=== PATIENT | female | born 2000 | race Caucasian/White ===

== ENCOUNTER 2018-01-08 16:57 | Inpatient (IN) ==
[2018-01-08] MEDS ORDERED: 0.9 % Sodium Chloride 1,000 ML ONE (19:45)
[2018-01-08] MEDS ORDERED: 0.9 % Sodium Chloride 1,000 ML IVC ONE (19:50)
[2018-01-08] MEDS ORDERED: Naloxone 0.4 MG/ML INJ IVP PRN (19:53)
[2018-01-08] MEDS ORDERED: Acetaminophen 325 MG TABLET PO PRN (19:53)
[2018-01-08] MEDS ORDERED: Ondansetron 4 MG/2 ML VIAL IVP PRN (19:53)
[2018-01-08] MEDS ORDERED: 0.9 % Sodium Chloride 1,000 ML IVC SCH (20:00)
[2018-01-08] MEDS ORDERED: Pantoprazole 40 MG VIAL IVP SCH (20:00)
[2018-01-08] MEDS ORDERED: Levofloxacin 750 MG/150 ML 750 MG/150 ML BAG IVPB SCH (20:00)
[2018-01-08] MEDS ORDERED: Vancomycin (wt based) 1,000 MG VIAL IVPB SCH (20:00)
[2018-01-08] MEDS ORDERED: Ringers Solution, Lactated 1,000 ML IVC SCH (20:00)
--- NOTE | 2018-01-08 20:05 | Internal Med History&Physical ---
Date of Encounter: 01/08/18 Time of Encounter: 19:35 Internal Medicine - H&P: HPI Chief complaint: short of breath, fever Admitted From: Hospital to Hospital Transfer Plans for Post Hospital Care: Home History of present illness: Ms. Corona is a 17 year old female who was transferred here from [facility] inpatient service today for concerns of hypoxemia. She was admitted overnight last night with bilateral pneumonia. However, on rounds today, she was noted to be hypoxemic and requiring high flow oxygen. She was therefore transferred to [facility]. Upon my assessment of the patient when she arrived, patient appears to be critically ill and has evidence of septic shock. She has a high oxygen requirement to maintain oxygen saturations of 91%. She has poor perfusion and is somnolent. I reviewed her labs from [place] and her chest x-ray. I discussed with patient and her mother and grandmother the above history. Symptoms started abruptly yesterday morning with a sore throat, fever, cough, and shortness of breath. She saw her PCP who prescribed her antibiotics. By last evening, she went to the ER at [place] and was admitted to the hospital service there. Then, as the day progressed today, her symptoms worsened and her oxygen requirement increased. She was therefore transferred here. Based upon her lab review, x-ray review, and clinical impression, I am concerned that she may likely need intubation and mechanical ventilation and aggressive ICU measures as the evening progresses into morning. I am therefore moving her to the intensive care unit for ongoing critical care and support. I explained this to the patient, her mother, and grandmother, and they are all in agreement with the plan. History is obtained mostly from her mother as patient is quite ill-appearing, somnolent, and unable to provide much history. She is easily arousable and attentive and alert despite her somnolence. After reassessing patient in the ICU and repeating her chest x-ray, I contacted my ICU attending (Dr. Jewell) and discussed the case with him. Her x-ray this evening shows 5 lobe disease, and I am quite concerned she is developing ARDS. At the present time, she is more alert and breathing better, but she remains tachycardic. Blood pressure stabilized after fluid bolus and oxygenation is stable on 100% nonrebreather facemask. ABG was performed, and it suggests a compensated metabolic acidosis. However, she has a significant FiO2 requirement. In addition to her antibiotics, we started her on high-dose steroids and ordered respiratory infection panel and other serologies as requested by pulmonary. Dr. Jewell suggested possible transfer to a tertiary care Medical Center if there is high concern for ARDS development. I reassessed the patient, and I discussed with her parents at length the possible development and complications of ARDS. They agreed and requested transfer to a tertiary care Medical Center. I therefore contacted [facility] in [place] requesting transfer to the ICU. Past Med Surg Social Fam HX - Past Medical History Attestation: Yes The following information was validated with the patient. Source: patient, old records reviewed, obtained from family Medical history: GERD, migraine Psychiatric history: depression - Past Surgical History Surgical History: other (Childhood dental procedures) - Social History Smoking Status: Current every day smoker Packs per day: 1/2 Smokeless Tobacco Status: No Alcohol use: none Drug use: none Current living situation: Home, With Family Activity Level: Independent ambulation Recent Out of Country Travel Within the Last 8 Weeks: No - Family History Mother Adopted: [place]: Desi Corona Family Member Ethnicity: Non- Living Status: Still Living Hx Family Cardiac Disorders: Yes Hx Family Respiratory Disorders: No Hx Family Cancer: No Hx Family GI Disorders: Yes (gastroparesis) Hx Family Genitourinary Disorders: No Hx Family Endocrine Disorder: Yes (pancreatitis) Hx Family Musculoskeletal Disorders: Yes (Fibromyalgia) Hx Family Neuromuscular Disorders: No Hx Family Neurologic Disorders: No Hx Family HEENT Disorders: No Hx Family Autoimmune Disorders: No Hx Family Reproductive Disorders: No Hx Family Psychosocial Disorders: No Hx Family Medical Disorders: No Father Adopted: [place]: Jovani Corona Family Member Ethnicity: Non- Living Status: Still Living Hx Family Cardiac Disorders: Yes (Bradycardia) Hx Family Respiratory Disorders: No Hx Family Cancer: No Hx Family GI Disorders: No Hx Family Genitourinary Disorders: No Hx Family Endocrine Disorder: No Hx Family Musculoskeletal Disorders: No Hx Family Neuromuscular Disorders: No Hx Family Neurologic Disorders: No Hx Family HEENT Disorders: No Hx Family Autoimmune Disorders: No Hx Family Reproductive Disorders: No Hx Family Psychosocial Disorders: No Hx Family Medical Disorders: No Internal Medicine - H&P: Meds Omeprazole [PriLOSEC] 40 mg PO DAILY 12/22/16 [History] SUMAtriptan succinate [Imitrex] 25 mg PO AD PRN 12/22/16 [History] Azithromycin 6-Tab Pack 1 tab PO AD 01/07/18 [History] 3 Allergy/AdvReac Type Severity Reaction Status Date / Time Carbinoxamine [From [facility]] Allergy Hives Verified 10/13/17 10:17 cephalexin Allergy Swelling Verified 10/13/17 10:17 of Lip/Tongue/Throat chlorpheniramine Allergy Hives Verified 10/13/17 10:17 [From [facility] (phenylephrin-chlorphn)] phenylephrine Allergy Hives Verified 10/13/17 10:17 [From [facility] (phenylephrin-chlorphn)] pseudoephedrine [From [facility]] Allergy Hives Verified 10/13/17 10:17 Amoxicillin AdvReac Rash Verified 10/13/17 10:17 - Constitutional Constitutional: fatigue, fever(s), night sweats, no chills - EENT Eyes: no blurry vision, no change in vision Ears: no ear pain, no tinnitus Nose, mouth and throat: sore throat, no nasal congestion, no nasal discharge - Cardiovascular Cardiovascular ROS IM: dyspnea, dyspnea on exertion, lightheadedness, no chest pain, no syncope - Respiratory Respiratory: cough, dyspnea, chest congestion, pain with cough, no hemoptysis, no excessive phlegm production, no change in phlegm color - Gastrointestinal Gastrointestinal: nausea, no abdominal pain, no diarrhea, no vomiting - Genitourinary Genitourinary: no dysuria, no flank pain, no hematuria - Musculoskeletal Musculoskeletal ROS IM: no arthralgias, no back pain - Integumentary Integumentary IM: no rash, no jaundice - Neurological Neurological ROS: headache(s) (migraines infrequently), no dizziness, no focal weakness, no frequent falls - Psychiatric Psychiatric: no anxiety, no depression - Endocrine Endocrine IM: no polydipsia, no polyuria - Allergic/Immunologic Allergic/Immunologic: seasonal rhinorrhea, no wheezing, no GI upset with certain foods - Constitutional Vitals: Temp Pulse Resp BP Pulse Ox 98.0 F 117 19 79/49 97 01/08/18 19:35 01/08/18 19:35 01/08/18 19:35 01/08/18 19:35 01/08/18 19:35 General appearance: Present: cooperative, mild distress, pleasant, answers questions appropriately Exam: critically ill, somnolent initially, alert now and appropriate, initially had evidence of poor perfusion -- improved with fluid bolus, tachypneic, tachycardic , increased work of breathing - Head Head exam: Present: atraumatic, normal inspection - Eye Eye exam: Present: EOMI, normal appearance, PERRL. Absent: scleral icterus Pupils: Present: normal accommodation - ENT ENT exam: Present: mucous membranes dry, normal exam - Neck Neck exam general surgery: Present: full ROM, supple. Absent: lymphadenopathy, tenderness, nuchal rigidity, thyromegaly - Respiratory Respiratory exam: Present: rales (all lung bailon), respiratory distress (mild to moderate), tachypnea. Absent: chest wall tenderness, prolonged expiratory phase, wheezes - Cardiovascular Cardiovascular exam: Present: RRR, +S1, +S2, tachycardia. Absent: diastolic murmur, JVD, rubs, systolic murmur - GI/Abdominal GI/Abdominal exam: Present: normal bowel sounds, soft. Absent: guarding, mass, splenomegaly, tenderness - Extremities Exam Extremities exam: Present: full ROM, warm. Absent: calf tenderness, joint swelling, normal capillary refill (delayed at 4-5 seconds), mottling, pedal edema Additional comments: initially poor perfusion with weak and thready pulses; improved with fluid bolus - Back Exam Back exam: Present: normal inspection. Absent: CVA tenderness (L), CVA tenderness (R), tenderness - Neurological Exam Neurological exam: Present: alert, oriented X3, no focal deficits - Psychiatric Psychiatric exam: Present: normal affect, normal mood - Skin Skin exam: Present: dry, pallor, warm. Absent: mottled, rash Internal Med - H&P Results - Labs CBC & Chem 7: 01/08/18 20:12 01/08/18 20:12 - Diagnostic Studies Chest x-ray Status: image reviewed by me (5 lobe disease concerning for early development of ARDS) - Assessment and plan (1) Sepsis Current Visit: Yes Status: Acute Assessment and plan: 1. Fluid responsive thus far. 2. Blood cultures obtained at [place]. 3. Continue Vancomycin and Levaquin. 4. CVC placed in right groin for pressors if necessary. 5. Trend lactate. 75 minutes critical care time thus far, assessing, treating, and coordinating care. Qualifiers: Sepsis type: sepsis due to unspecified organism Qualified Code(s): A41.9 - Sepsis, unspecified organism (2) ARDS (adult respiratory distress syndrome) Current Visit: Yes Status: Suspected Assessment and plan: 1. Discussed with Dr. Coffman and family -- decision made to transfer. 2. I requested transfer to [facility] ICU -- accepted by [facility] Hospitalist team to the ICU (Dr. Givens). 3. [facility] requested [facility] transportation by helicopter -- I agree. 4. High dose Solumedrol started per discussion with Dr. Jewell. (3) Pneumonia of both lower lobes Current Visit: Yes Status: Suspected Assessment and plan: 1. Antibiotics and treatment as above. 2. Organism unknown but suspicious for pneumococcal pneumonia based upon history and abrupt onset. Qualifiers: Pneumonia type: due to Pneumococcus Qualified Code(s): J13 - Pneumonia due to Streptococcus pneumoniae (4) DVT prophylaxis Current Visit: Yes Status: Acute Assessment and plan: 1. Heparin SQ.
[2018-01-08 20:09] LABS: ABG Base Excess -6 mEq/L (-2 to 3); ABG HCO3 18 mEq/L (21-27); ABG Oxygen Saturation 89 % (95-98); ABG PCO2 30 mmHg (35-45); ABG PH 7.39 pH Units (7.32-7.45); ABG PO2 56 mmHg (85-104); ABG TCO2 19 mEq/L (20-26)
[2018-01-08 20:25] LABS: Lymphocytes % 2.7 %
[2018-01-08 20:26] LABS: Basophils % 0.1 %; Eosinophils # 0.3 K/mcL (0.0-0.6); Hemoglobin 12.1 g/dL (11.5-15.4); Immature Granulocytes % 2.2 % (0-4); Lymphocytes # 0.9 K/mcL (0.6-4.6); Mean Corpuscular HGB Conc 33.6 g/dL (31.6-35.5); Mean Corpuscular Hemoglobin 30.9 pg (28.0-33.3); Mean Corpuscular Volume 91.8 fL (83.0-100.0); Mean Platelet Volume 8.8 fL (9.4-12.4); Monocytes # 1.6 K/mcL (0.0-1.3); Monocytes % 4.8 %; Platelet Count 441 K/mcL (140-400); Red Blood Count 3.92 M/mcL (3.82-4.97); Red Cell Distribution Width 13.1 % (11.5-14.5); Segmented Neutrophils % 89.2 %
[2018-01-08 20:27] LABS: Neutrophils # 30.2 K/mcL (1.6-8.9)
[2018-01-08] MEDS: Ipratropium/Albuterol Neb 3 ML IH SCH ×2 (20:29→20:38)
[2018-01-08 20:31] LABS: INR 1.5; Prothrombin Time 16.9 Seconds (9.4-12.1)
[2018-01-08 20:45] LABS: Alanine Aminotransferase 5 Units/L (7-52); Albumin/Globulin Ratio 1.4 (1.1-2.2); Alkaline Phosphatase 37 Units/L (34-104); Aspartate Amino Transferase 8 Units/L (13-39); BUN/Creatinine Ratio 7 (6-26); Bilirubin,Total 0.3 mg/dL (0.3-1.0); Blood Urea Nitrogen 5 mg/dL (6-20); Calcium 7.9 mg/dL (8.6-10.3); Carbon Dioxide 23 mEq/L (23-29); Chloride 109 mEq/L (98-107); Globulin 2.2 g/dL (2.4-3.5); Glucose 119 mg/dL (70-105); Magnesium 1.6 mg/dL (1.6-2.6); Osmolality,Calculated 276 (280-300); Phosphorous 2.6 mg/dL (2.7-4.5); Potassium 4.6 mEq/L (3.5-5.1); Sodium 134 mEq/L (136-145); Total Protein 5.2 g/dL (6.4-8.9); eGFR For Non-African Americans > 60
[2018-01-08 21:08] LABS: Platelet Estimate Increased (Normal)
[2018-01-08 21:37] LABS: Bilirubin,Urine Negative (Negative); Blood,Urine Small (Negative); Clarity,Urine Clear (Clear); Color,Urine Yellow (Yellow); Glucose,Urine (UA) Normal (Normal); Ketones,Urine Negative (Negative); Leukocyte Esterase,Urine Negative (Negative); Nitrite,Urine Negative (Negative); Protein,Urine Negative (Neg-Trace); Specific Gravity,Urine 1.012 (1.010-1.025); Urobilinogen,Urine Normal (Normal)
[2018-01-08 21:39] LABS: Bacteria,Urine None Seen per hpf (None-Few); Hyaline Casts,Urine None Seen per lpf (None-Few); Squamous Epithelial Cell,Urine Many per lpf (None-Few); WBC,Urine 0-3 per hpf (0-3)
[2018-01-08] MEDS ORDERED: *HR* Promethazine 25 MG/ML VIAL ONE (21:39)
[2018-01-08] MEDS ORDERED: *HR* Promethazine 25 MG/ML VIAL IVP ONE (21:41)
[2018-01-08] MEDS ORDERED: methylPREDNISolone 125 MG/2 ML VIAL IVP SCH (21:45)
[2018-01-08] MEDS ORDERED: *HR* Heparin 5,000 UNIT/ML VIAL SQ SCH (22:00)
[2018-01-08 22:11] VITALS: BP 110/70
--- NOTE | 2018-01-08 22:47 | Procedure Note ---
<Raad Armijo - Last Filed: 01/08/18 22:39> Date of procedure: 01/08/18 Pre-op diagnosis: Severe sepsis Post-op diagnosis: same Procedure: A time-out was completed verifying correct patient, procedure, site, positioning , and special equipment. The patient was placed in a dependent position appropriate for central line placement based on the vein to be cannulated. The patients right groin was prepped and draped in sterile fashion. 1% Lidocaine was used to anesthetize the surrounding skin area. A 20 cm triple lumen Cordis catheter was introduced into the the common femoral vein using the Seldinger technique and under ultrasound guidance. The catheter was threaded smoothly over the guide wire and appropriate blood return was obtained. Each lumen of the catheter was evacuated of air and flushed with sterile saline. The catheter was then sutured in place to the skin and a sterile dressing applied. Perfusion to the extremity distal to the point of catheter insertion was checked and found to be adequate. Attending, Dr. Sanchez was present for the entire procedure. Estimated Blood Loss: 1cc, The patient tolerated the procedure well and there were no complications. Surgeon: Raad Armijo Was there an assistant engineer present: Yes Director [employer]: Atul Sanchez Estimated blood loss (cc): 1 IV fluids (cc): 2,000 Specimen: none Pathology: none sent Condition: critical Disposition: ICU (Life flight to [facility]) <Atul Sanchez - Last Filed: 01/08/18 23:03> Procedure: I was present and supervised entire procedure. Patient tolerated procedure well.
[2018-01-08 23:22] LABS: Adenovirus Not Detected (Not Detect); Bordetella Pertussis Not Detected (Not Detect); Chlamydophila pneumoniae Not Detected (Not Detect); Coronavirus 229E Not Detected (Not Detect); Coronavirus HKU1 Not Detected (Not Detect); Coronavirus NL63 Not Detected (Not Detect); Coronavirus OC43 Not Detected (Not Detect); Human Metapneumovirus Not Detected (Not Detect); Human Rhinovirus/Enterovirus Not Detected (Not Detect); Influenza A Subtype 2009 H1 Not Detected (Not Detect); Influenza A Untypeable Not Detected (Not Detect); Influenza B Not Detected (Not Detect); Mycoplasma pneumoniae Not Detected (Not Detect); Parainfluenza Virus 1 Not Detected (Not Detect); Parainfluenza Virus 2 Not Detected (Not Detect); Parainfluenza Virus 3 Not Detected (Not Detect); Parainfluenza Virus 4 Not Detected (Not Detect); Respiratory Syncytial Virus Not Detected (Not Detect)
[2018-01-08] MEDS ORDERED: Aminoglycoside Consult 1 EACH MC ONE (23:44)
--- NOTE | 2018-01-08 23:49 | Procedure Note ---
<Raad Armijo - Last Filed: 01/08/18 23:35> Date of procedure: 01/08/18 Pre-op diagnosis: Severe sepsis Post-op diagnosis: same Procedure: A time-out was not completed due to emergent nature of the procedure and need for life flight to [place]. The patient was placed in a flat position. Sedation was obtained using Versed 5mg, and additionally with Etomidate 20mg. The patient was easily ventilated using an ambu bag. The MAC 3 BLADE was used and inserted into the oropharynx at which time there was a Grade 1 view of the vocal cords. A 8-belarusian endotracheal tube was inserted and visualized going through the vocal cords. The stylette was removed. Colorimetric change was visualized on the CO2 meter. Breath sounds were heard in both lung bailon equally. A chest x-ray was not ordered to verify endotracheal tube placement due to the emergent need for life flight transport to [facility]. The endotracheal tube was placed at 23 cm, measured at the teeth. Attending, Dr. Sanchez was present for the entire procedure. The patient tolerated the procedure well and there were no complications. Anesthesia: IV sedation Surgeon: Raad Armijo Was there an assistant mechanic present: Yes [employer] Erector: Atul Sanchez Estimated blood loss (cc): 0 Specimen: N/A Pathology: none sent Condition: critical Disposition: ICU (Life flight transfer to [facility]) <Atul Sanchez - Last Filed: 01/09/18 00:47> Procedure: I was present and supervised procedure entirely. [employer] crew was also present and requested intubation to which I agreed. Patient tolerated procedure well. Once ETT was secured and patient stabilized, she was transported by helicopter to [place].
[2018-01-09] MEDS ORDERED: Piperacillin/Tazobactam 3.375 GM in 0.9 % Sodium Chloride Mini Bag 100 ML IVPB SCH
== END 2018-01-08 23:45 | disposition critical access hospital (66) | DRG 720 ==
LOC: 2NNU 18:14 → ICNU 20:51
PROVIDERS: ADMIT Internal Medicine; ATTEND Internal Medicine

== ENCOUNTER → 2019-01-24 03:03 | Observation (INO) ==
[2019-01-24 02:12] LABS: Bilirubin,Urine Negative (Negative); Blood,Urine Negative (Negative); Clarity,Urine Clear (Clear); Color,Urine Yellow (Yellow); Glucose,Urine (UA) Normal (Normal); Ketones,Urine Negative (Negative); Leukocyte Esterase,Urine Negative (Negative); Nitrite,Urine Negative (Negative); Protein,Urine Negative (Neg-Trace); Specific Gravity,Urine 1.028 (1.010-1.025); Urobilinogen,Urine Normal (Normal)
[2019-01-24 02:23] LABS: Amphetamine Screen,Urine Negative ng/mL (Cutoff=1000); Barbiturate Screen,Urine Negative ng/mL (Cutoff=200); Benzodiazepines Screen,Urine Negative ng/mL (Cutoff=200); Cannabinoid Screen,Urine Negative ng/mL (Cutoff = 50); Cocaine Screen,Urine Negative ng/mL (Cutoff= 300); Opiate Screen,Urine Negative ng/mL (Cutoff=300); Phencyclidine Screen,Urine Negative ng/mL (Cutoff=25)
--- NOTE | 2019-01-24 02:57 | OB/GYN Progress Note ---
Date of Encounter: 01/24/19 Time of Encounter: 02:55 - Assessment and Plan (1) 33 weeks gestation of Current Visit: Yes Status: Acute (2) Decreased movement affecting management of Current Visit: Yes Status: Acute NST reactive. Pt feeling movements in triage Qualifiers: Fetus number: single or unspecified fetus Trimester: third trimester Qualified Code(s): O36.8130 - Decreased movements, third trimester, not applicable or unspecified (3) Pelvic pressure in Current Visit: Yes Status: Acute No contractions on toco. UA unremarkable. (4) NST (non-stress test) reactive Current Visit: Yes Status: Acute Subjective - Subjective Interval history: 18 year-old G1 presenting at 33 weeks gestation with c/o decreased movement, pelvic pressure, and lower back pain. She denies leaking, bleeding, or contractions. She reports urinary frequency. no other symptoms. Good FM since arriving to triage. Antepartum ROS: no loss of fluid, no vaginal bleeding, no contractions Objective - Vital Signs Vital Signs: Intake and Output 01/23/19 01/23/19 01/24/19 15:59 23:59 07:59 Other: Weight 69.7 kg Patient Weight 01/24/19 23:59 Weight 69.7 kg - Exam FHR: category 1 FHR comments: 130 BPM reactive NST Auscultation: bilateral: normal Abdomen: Present: soft, gravid Uterus: Absent: tenderness - Labs Labs: Abnormal lab results Ur Specific [place] 1.028 (1.010-1.025) H 01/24/19 02:00
== END | disposition home or self-care (01) ==
LOC: 1NENULAB
PROVIDERS: ADMIT Registered Nurse; ATTEND Registered Nurse

== ENCOUNTER → 2019-03-06 06:43 | Observation (INO) ==
[2019-03-06 05:23] LABS: Amphetamine Screen,Urine Negative ng/mL (Cutoff=1000); Barbiturate Screen,Urine Negative ng/mL (Cutoff=200); Benzodiazepines Screen,Urine Negative ng/mL (Cutoff=200); Cannabinoid Screen,Urine Negative ng/mL (Cutoff = 50); Cocaine Screen,Urine Negative ng/mL (Cutoff= 300); Opiate Screen,Urine Negative ng/mL (Cutoff=300); Phencyclidine Screen,Urine Negative ng/mL (Cutoff=25)
[2019-03-06 05:59] LABS: Candida DNA Not Detected (Not Detect); Gardnerella DNA Not Detected (Not Detect); Trichomonas DNA Not Detected (Not Detect)
== END | disposition home or self-care (01) ==
LOC: 1NENULAB
PROVIDERS: ADMIT Advanced Practice Midwife; ATTEND Advanced Practice Midwife

== ENCOUNTER 2019-03-09 14:48 | Inpatient (IN) ==
[2019-03-09 15:48] LABS: Amphetamine Screen,Urine Negative ng/mL (Cutoff=1000); Barbiturate Screen,Urine Negative ng/mL (Cutoff=200); Benzodiazepines Screen,Urine Negative ng/mL (Cutoff=200); Cannabinoid Screen,Urine Negative ng/mL (Cutoff = 50); Cocaine Screen,Urine Negative ng/mL (Cutoff= 300); Opiate Screen,Urine Negative ng/mL (Cutoff=300); Phencyclidine Screen,Urine Negative ng/mL (Cutoff=25)
[2019-03-09] MEDS ORDERED: Naloxone 0.4 MG/ML INJ IVP PRN (17:52)
[2019-03-09] MEDS ORDERED: Famotidine 20 MG/2 ML VIAL IVP PRN (17:52)
[2019-03-09] MEDS ORDERED: Metoclopramide 10 MG/2 ML VIAL IVP PRN (17:52)
[2019-03-09] MEDS ORDERED: Oxytocin 20 units/ LR 1000 mL 20 UNIT/1,000 ML BAG IVC SCH (18:00)
[2019-03-09] MEDS ORDERED: Ringers Solution, Lactated 1,000 ML IVC SCH (18:00)
[2019-03-09] MEDS ORDERED: *HR* Nalbuphine 10 MG/ML AMPUL IV PRN (18:15)
[2019-03-09 18:16] LABS: Basophils # 0.1 K/mcL (0.0-0.2); Basophils % 0.4 %; Eosinophils # 0.2 K/mcL (0.0-0.6); Eosinophils % 0.6 %; Hematocrit 36.4 % (35.3-44.9); Hemoglobin 12.9 g/dL (11.5-15.4); Immature Granulocytes % 2.6 % (0-4); Lymphocytes # 2.2 K/mcL (0.6-4.6); Lymphocytes % 8.9 %; Mean Corpuscular HGB Conc 35.4 g/dL (31.6-35.5); Mean Corpuscular Hemoglobin 33.8 pg (28.0-33.3); Mean Corpuscular Volume 95.3 fL (83.0-100.0); Mean Platelet Volume 9.1 fL (9.4-12.4); Monocytes # 1.4 K/mcL (0.0-1.3); Monocytes % 5.5 %; Neutrophils # 20.5 K/mcL (1.6-8.9); Platelet Count 349 K/mcL (140-400); Red Blood Count 3.82 M/mcL (3.82-4.97); Red Cell Distribution Width 13.1 % (11.5-14.5)
[2019-03-09] MEDS: Ondansetron 4 MG/2 ML VIAL IVP PRN ×2 (18:32→23:59)
[2019-03-09] MEDS ORDERED: Bupivacaine-MPF 0.25% 10 ML VIAL EP ONE (19:36)
[2019-03-09] MEDS ORDERED: *HR* FentaNYL (PF) 100 MCG/2 ML VIAL EP ONE (19:36)
[2019-03-09] MEDS ORDERED: Bupivacaine-MPF 0.25% 10 ML VIAL ONE (19:37)
[2019-03-09] MEDS ORDERED: *HR* FentaNYL (PF) 100 MCG/2 ML VIAL ONE (19:37)
[2019-03-09] MEDS ORDERED: Epidural Premix (fent/bupiv) 110 ML EP SCH (19:45)
[2019-03-10] MEDS ORDERED: Bupivacaine-MPF 0.25% 10 ML VIAL ONE (00:57)
[2019-03-10] MEDS ORDERED: Acetaminophen 325 MG TABLET PO PRN (07:51)
[2019-03-10] MEDS ORDERED: Oxytocin 20 units/ LR 1000 mL 20 UNIT/1,000 ML BAG IVC SCH (07:51)
[2019-03-10] MEDS ORDERED: Benzocaine/Menthol 56 GM AEROSOL SPRAY TP PRN (07:51)
[2019-03-10] MEDS: Prenatal Vit/FA 1 EACH TABLET PO SCH (09:30)
[2019-03-10] MEDS: Ibuprofen 600 MG TABLET PO PRN ×2 (09:30→16:23)
[2019-03-11 07:06] LABS: Basophils # 0.1 K/mcL (0.0-0.2); Basophils % 0.4 %; Eosinophils # 0.4 K/mcL (0.0-0.6); Hematocrit 30.7 % (35.3-44.9); Immature Granulocytes % 2.4 % (0-4); Lymphocytes # 3.7 K/mcL (0.6-4.6); Mean Corpuscular HGB Conc 33.6 g/dL (31.6-35.5); Mean Corpuscular Hemoglobin 33.8 pg (28.0-33.3); Mean Corpuscular Volume 100.7 fL (83.0-100.0); Mean Platelet Volume 9.1 fL (9.4-12.4); Monocytes # 1.2 K/mcL (0.0-1.3); Monocytes % 6.4 %; Neutrophils # 13.6 K/mcL (1.6-8.9); Platelet Count 356 K/mcL (140-400); Red Blood Count 3.05 M/mcL (3.82-4.97); Red Cell Distribution Width 13.1 % (11.5-14.5); Segmented Neutrophils % 69.8 %; White Blood Count 19.5 K/mcL (4.3-11.1)
[2019-03-11 07:14] LABS: Hemoglobin 10.3 g/dL (11.5-15.4)
[2019-03-11 08:26] VITALS: BP 100/66
[2019-03-11] MEDS: Ibuprofen 600 MG TABLET PO PRN (08:52)
[2019-03-11] MEDS: Prenatal Vit/FA 1 EACH TABLET PO SCH (08:52)
== END 2019-03-11 11:55 | disposition home or self-care (01) | DRG 560 ==
LOC: 1NENULAB → OBSVTOIN 14:48 → 1NENUOBS 03-10 06:46
PROVIDERS: ADMIT Registered Nurse; ATTEND Registered Nurse